=== PATIENT | female | born 1955 | race Caucasian/White ===

== ENCOUNTER 2016-12-27 13:11 | Inpatient (IN) | payer OTHER, SELFPAY ==
--- NOTE | 2016-12-27 13:26 | Emergency Department Record ---
History of Present Illness - General Chief complaint: Dental Stated complaint: ABSCESS TOOTH Time Seen by Provider: 12/27/16 13:25 Source: Patient Mode of Arrival: Ambulatory Limitations: No limitations - History of Present Illness Initial comments: The patient is here due to a dental problem for almost a week. She has been taking Amoxicillin for 4 days but it is not helping. She has had swelling and pain to the L upper dental area for 3 days now. There is no reported fever, chills, vomiting, PICKARD, or diarrhea. MD complaint: Tooth pain Onset/Timin -: Week(s) Quality: Aching Consistency: Constant, Getting worse Improves with: None Worsens with: None Associated Symptoms: Gum swelling, Toothache, Other - Related Data Home Medications Medication Instructions Recorded Confirmed Last Taken Amoxicillin 250 mg PO TID 12/27/16 12/27/16 12/27/16 Atorvastatin Calcium [Lipitor] 40 mg PO QHS 12/27/16 12/27/16 12/27/16 Multivit-Minerals/Folic Acid 80 mcg PO DAILY 12/27/16 12/27/16 12/27/16 [Centrum Multigummies] Paroxetine HCl [Paxil] 1 tab PO DAILY 12/27/16 12/27/16 12/27/16 Allergies Allergy/AdvReac Type Severity Reaction Status Date / Time bupropion Allergy HYPERSENSIT Verified 12/27/16 13:33 IVITY codeine Allergy HYPERSENSIT Verified 12/27/16 13:33 IVITY NSAIDS (Non-Steroidal AdvReac HYPERSENSIT Verified 12/27/16 13:33 Anti-Inflamma IVITY Travel Screening - Travel/Exposure Within Last 30 Days Have you traveled within the last 30 days?: No - Travel/Exposure Within Last Year Have you traveled outside the [place] in the last year?: No - Additonal Travel Details Have you been exposed to anyone with a communicable illness?: No - Travel Symptoms Symptom Screening: None Review of Systems Constitutional: Denies: Chills, Fever, Malaise Eyes: Denies: Eye discharge ENT: Denies: Congestion Respiratory: Denies: Cough, Dyspnea Cardiovascular: Denies: Arrhythmia, Chest pain Past Medical History - SOCIAL HISTORY Smoking Status: Current every day smoker Alcohol Use: None Drug Use: None - RESPIRATORY Hx Respiratory Disorders: No - CARDIOVASCULAR Hx Cardio Disorders: No - NEURO Hx Neuro Disorders: No - GI Hx GI Disorders: No - Hx Genitourinary Disorders: No - ENDOCRINE Hx Endocrine Disorders: No - MUSCULOSKELETAL Hx Musculoskeletal Disorders: No - PSYCH Hx Psych Problems: Yes Hx Depression: Yes - HEMATOLOGY/ONCOLOGY Hx Hematology/Oncology Disorders: No Family Medical History Any Significant Family History?: No Physical Exam - General General Appearance: Alert, Oriented x3, Cooperative, No acute distress - Head Head exam: Atraumatic, Normocephalic, Normal inspection - Eye Eye exam: Normal appearance, PERRL, EOMI - ENT ENT exam: TM's normal bilaterally. negative: Normal exam (There is swelling and tenderness to the L maxillary area.) Mouth exam: Normal external inspection Teeth exam: Dental caries, Other (There is WIDESPREAD dental decay and swelling and tenderness about the L upper 1st-2nd molar area.). negative: Normal inspection Throat exam: Normal inspection. negative: Tonsillar erythema, Tonsillomegaly, Tonsillar exudate - Neck Neck exam: Normal inspection, Full ROM. negative: Lymphadenopathy, Meningismus , Tenderness - Respiratory Respiratory exam: Normal lung sounds bilaterally. negative: Respiratory distress - Cardiovascular Cardiovascular Exam: Regular rate, Normal rhythm, Normal heart sounds Course Vital Signs 12/27/16 13:13 Temperature 98.3 F Pulse Rate 100 H Respiratory 20 Rate Blood Pressure 113/77 Pulse Ox 97 - Reevaluation(s) Reevaluation #1: The patient is doing well. She denies any new issue and states the pain is improved. I did discuss the case with Karlie (DEMETRI) and she does accept the admission to the hospital for IV Abx's. 12/27/16 14:23 Medical Decision Making - Data Complexity MDM Data: Labs Ordered and/or Reviewed - Lab Data Result diagrams: 12/27/16 13:40 12/27/16 13:40 Disposition Disposition: Admit Clinical Impression: Cellulitis of face Disposition: Still a Patient at [facility] Decision to Admit: Admit from ER Decision to Admit Date: 12/27/16 Decision to Admit Time: 14:24 Accepting Physician: Krupa Time Discussed w/Accepting Physician: 14:25 Condition: (2) Stable Forms: Patient Portal Access Time of Disposition: 14:25
[2016-12-27] MEDS ORDERED: CLINDAMYCIN 600MG/50ML PREMIX 600 MG in DEXTROSE 1 BAG IV ONE (13:33)
[2016-12-27] MEDS ORDERED: HYDROCODONE/APAP 5/325MG TABLET PO ONE (13:33)
[2016-12-27 13:49] LABS: BASO % 0.2 % (0-6); EOS % 0.2 % (0-6); GRAN % 76.1 % (47-80); HEMATOCRIT 45.6 % (35.0-47.0); HEMOGLOBIN 15.3 gm/dl (11.6-16.0); LYMPH % 14.5 % (16-45); MEAN CELL VOLUME 84.6 fl (81-97); MEAN CORPUSCULAR HEMOGLOBIN 28.4 pg (27-33); MEAN CORPUSCULAR HGB CONC 33.6 g/dl (32-36); MEAN PLATELET VOLUME 9.7 fl (7.4-10.4); PLATELET COUNT 409 K/uL (130-400); RED BLOOD COUNT 5.39 M/uL (3.80-5.40); RED CELL DISTRIBUTION WIDTH 13.1 % (11.5-14.5); WHITE BLOOD COUNT W/O DIFF 16.5 K/uL (4.2-12.2)
[2016-12-27 14:02] LABS: ALB/GLOB RATIO 1.2 (1.1-1.8); ALBUMIN 4.5 gm/dL (3.5-5.0); ANION GAP 14.9 (7-16); BILIRUBIN,TOTAL 1.48 mg/dL (0.2-1.3); C-REACTIVE PROTEIN 6.5 mg/dL (0.0-0.9); CARBON DIOXIDE 27.1 mmol/L (22-30); TOTAL PROTEIN 8.4 gm/dL (6.3-8.2)
[2016-12-27] MEDS ORDERED: 0.9 % SODIUM CHLORIDE 1000ML 1,000 ML IV PRN (14:50)
[2016-12-27] MEDS ORDERED: 0.9 % SODIUM CHLORIDE 10ML SYR IVP PRN (15:28)
[2016-12-27] MEDS: HYDROCODONE/APAP 5/325MG TABLET PO PRN (18:22)
[2016-12-27] MEDS: CLINDAMYCIN 600MG/50ML PREMIX 600 MG in DEXTROSE 1 BAG IV SCH (21:23)
[2016-12-27] MEDS: MORPHINE SULFATE 5 MG/ML PFS IVP PRN (21:30)
[2016-12-27] MEDS: ATORVASTATIN 20 MG TABLET PO SCH (21:40)
[2016-12-28] MEDS: CLINDAMYCIN 600MG/50ML PREMIX 600 MG in DEXTROSE 1 BAG IV SCH ×3 (05:28→21:52)
[2016-12-28] MEDS: MORPHINE SULFATE 5 MG/ML PFS IVP PRN ×4 (07:50→21:51)
[2016-12-28 07:53] LABS: BASO % 0.2 % (0-6); EOS % 0.6 % (0-6); GRAN % 71.9 % (47-80); HEMATOCRIT 41.3 % (35.0-47.0); HEMOGLOBIN 13.9 gm/dl (11.6-16.0); LYMPH % 16.1 % (16-45); MEAN CELL VOLUME 85.5 fl (81-97); MEAN CORPUSCULAR HEMOGLOBIN 28.8 pg (27-33); MEAN CORPUSCULAR HGB CONC 33.7 g/dl (32-36); MEAN PLATELET VOLUME 9.2 fl (7.4-10.4); MONO % 11.2 % (0-9); PLATELET COUNT 394 K/uL (130-400); RED BLOOD COUNT 4.83 M/uL (3.80-5.40); RED CELL DISTRIBUTION WIDTH 13.2 % (11.5-14.5); WHITE BLOOD COUNT W/O DIFF 13.1 K/uL (4.2-12.2)
[2016-12-28 08:07] LABS: ALB/GLOB RATIO 1.1 (1.1-1.8); ALKALINE PHOSPHATASE 134 U/L (38-126); ALT/SGPT 49 U/L (9-52); AST/SGOT 51 U/L (14-36); BILIRUBIN,TOTAL 1.37 mg/dL (0.2-1.3); BLOOD UREA NITROGEN 21 mg/dL (7-17); C-REACTIVE PROTEIN 6.7 mg/dL (0.0-0.9); CREATININE 0.7 mg/dL (0.52-1.04); EST GLOMERULAR FILTRATION RATE > 60 ml/min; GLUCOSE,RANDOM 144 mg/dL (70-110); TOTAL PROTEIN 7.7 gm/dL (6.3-8.2)
[2016-12-28] MEDS: PAROXETINE HCL 10 MG TABLET PO SCH (09:31)
--- NOTE | 2016-12-28 16:15 | History & Physical ---
History of Present Illness - Date of Service Date of Service for History & Physical: 12/28/16 - History of Present Illness Admitting Diagnosis: 1. L facial cellulitis with possible abscess. History of Present Illness: 61yo female with CC of left facial swelling and pain. she has a history of depression, poor dentition and smoking. Last cigarette was 3 weeks ago. Patient presented to the ED with left sided facial swelling and upper dental pain. She had been started on amoxicillin by her dentist 4 days prior for the dental pain without any improvement. Her pain was bad she decided to come to the ED. while in the ED, patient was noted to have facial swelling. Her WBC count was elevated at 16.5 and CRP was 6.5. Her Tbili was elevated but rest of labs were unremarkable. She was afebrile. Patient started on Clindamyacin and admitted for failed outpatient therapy for suspected dental abscess. 12/28/16- Patient states her pain is about the same as yesterday but that the swelling has improved a little. She reports that the ice pack and morphine have been helping with her pain. She has had previous dental infections but never been hospitalized. she has a new dentist that is planning on pulling all of her teeth. She denies fevers, chills, nausea, or drainage from her teeth. Travel Screening - Travel/Exposure Within Last 30 Days Have you traveled within the last 30 days?: No - Travel/Exposure Within Last Year Have you traveled outside the [place] in the last year?: No - Additonal Travel Details Have you been exposed to anyone with a communicable illness?: No - Travel Symptoms Symptom Screening: None Review of Systems Constitutional: Denies: Chills, Fever, Malaise Eyes: Denies: Eye discharge ENT: Reports: Dental pain (upper left ). Denies: Congestion Respiratory: Denies: Cough, Dyspnea Cardiovascular: Denies: Arrhythmia, Chest pain Skin: Reports: Change in color (redness and swelling of left facial cheek) Past Medical History - SOCIAL HISTORY Smoking Status: Current every day smoker Alcohol Use: None Drug Use: None - RESPIRATORY Hx Respiratory Disorders: No - CARDIOVASCULAR Hx Cardio Disorders: No - NEURO Hx Neuro Disorders: No - GI Hx GI Disorders: No - Hx Genitourinary Disorders: No - ENDOCRINE Hx Endocrine Disorders: No - MUSCULOSKELETAL Hx Musculoskeletal Disorders: No - PSYCH Hx Psych Problems: Yes Hx Depression: Yes - HEMATOLOGY/ONCOLOGY Hx Hematology/Oncology Disorders: No Family Medical History Any Significant Family History?: No H&P Meds/Allergies - Allergies Allergies: Allergies Allergy/AdvReac Type Severity Reaction Status Date / Time bupropion HCl Allergy Severe HIVES Verified 12/27/16 15:26 [From Wellbutrin] amoxicillin Allergy SWELLING Verified 12/27/16 14:38 OF THE FACE bupropion Allergy HYPERSENSIT Verified 12/27/16 13:33 IVITY codeine Allergy HYPERSENSIT Verified 12/27/16 13:33 IVITY NSAIDS (Non-Steroidal AdvReac HYPERSENSIT Verified 12/27/16 13:33 Anti-Inflamma IVITY - Home Medications Home Medications Medication Instructions Recorded Confirmed Last Taken Amoxicillin 250 mg PO TID 12/27/16 12/27/16 12/27/16 Atorvastatin Calcium [Lipitor] 40 mg PO QHS 12/27/16 12/27/16 12/27/16 Multivit-Minerals/Folic Acid 80 mcg PO DAILY 12/27/16 12/27/16 12/27/16 [Centrum Multigummies] Paroxetine HCl [Paxil] 1 tab PO DAILY 12/27/16 12/27/16 12/27/16 - Active Medications Active Medications: Current Medications Acetaminophen/Hydrocodone Bitart ([place] 5mg/325mg) 2 each PO Q6H PRN PRN Reason: Analgesia Last Admin: 12/27/16 18:22 Dose: 2 each Atorvastatin Calcium (Lipitor) 40 mg PO QHS [facility] Last Admin: 12/27/16 21:40 Dose: 40 mg Clindamycin Phosphate 600 mg/ (Glucose) 50 mls @ 50 mls/30 min IV Q8H [facility] Last Admin: 12/28/16 14:23 Dose: 50 mls/30 min Sodium Chloride () 1,000 mls @ 15 mls/hr IV .Q24H PRN PRN Reason: LARGE VOLUME IV Last Admin: 12/27/16 21:23 Dose: 15 mls/hr Morphine Sulfate (Morphine Sulfate) 2 mg IVP Q4HR PRN PRN Reason: Pain - General Stop: 01/03/17 20:12 Last Admin: 12/28/16 13:08 Dose: 2 mg Paroxetine HCl (Paxil) 40 mg PO DAILY [facility] Last Admin: 12/28/16 09:31 Dose: 40 mg Sodium Chloride () 10 ml IVP Q12H PRN PRN Reason: patent IV Physical Exam - Vital Signs Vital Signs: Vital Signs - Last 24 Hrs Temp Pulse Resp BP Pulse Ox 12/28/16 15:00 99.0 F 84 18 130/73 94 L 12/28/16 09:00 90 18 12/28/16 07:00 98.3 F 90 18 131/76 94 L 12/27/16 21:00 80 18 12/27/16 20:30 98.3 F 80 18 126/77 98 12/27/16 15:55 98.6 F 83 18 123/82 93 L - General General Appearance: Alert, Oriented x3, Cooperative, No acute distress Limitations: No limitations - Head Head exam: Atraumatic, Normocephalic, Normal inspection - Eye Eye exam: Normal appearance, PERRL, EOMI - ENT ENT exam: TM's normal bilaterally. negative: Normal exam (There is swelling, tenderness, and mild erythema to the L maxillary area.) Mouth exam: Normal external inspection Teeth exam: Dental caries, Other (There is WIDESPREAD dental decay and swelling and tenderness about the L upper 1st-2nd molar area.). negative: Normal inspection Throat exam: Normal inspection. negative: Tonsillar erythema, Tonsillomegaly, Tonsillar exudate - Neck Neck exam: Normal inspection, Full ROM. negative: Lymphadenopathy, Meningismus , Tenderness - Respiratory Respiratory exam: Normal lung sounds bilaterally. negative: Respiratory distress - Cardiovascular Cardiovascular Exam: Regular rate, Normal rhythm, Normal heart sounds - GI/Abdominal GI/Abdominal exam: Soft, Normal bowel sounds. negative: Tenderness - Neurological Neurological exam: Alert, Normal gait, Oriented X3, Reflexes normal Results - Labs Result Diagrams: 12/28/16 07:50 12/28/16 07:50 Labs Last 24 Hours: Laboratory Results - last 24 hr 12/28/16 12/28/16 07:50 07:50 WBC 13.1 H RBC 4.83 Hgb 13.9 Hct 41.3 MCV 85.5 MCH 28.8 MCHC 33.7 RDW 13.2 Plt Count 394 MPV 9.2 Gran % 71.9 Lymphocytes % 16.1 Monocytes % 11.2 H Eosinophils % 0.6 Basophils % 0.2 Sodium 137 Potassium 3.5 Chloride 97 L Carbon Dioxide 30.0 Anion Gap 10.0 BUN 21 H Creatinine 0.7 Estimated GFR > 60 Random Glucose 144 H Calcium 9.1 Total Bilirubin 1.37 H AST 51 H ALT 49 Alkaline Phosphatase 134 H C-Reactive Protein 6.7 H Total Protein 7.7 Albumin 4.0 Globulin 3.7 Albumin/Globulin Ratio 1.1 - Imaging and Cardiology Soft tissue neck CT Status: Report reviewed (facial cellulitis) VTE H&P Assessment - Risk for VTE Risk for VTE: Yes Risk Level: Moderate Risk Assessment Date: 12/28/16 Risk Assessment Time: 17:14 VTE Orders Placed or Will Be Placed: Yes Plan - Detailed Diagnosis and Plan (1) Facial cellulitis Current Visit: Yes Status: Acute Base Code: L03.211 - CELLULITIS OF FACE Comment: 12/28/16- Improved slightly. CT scan showed facial cellulitis without evidence of abscess. WBC count down from 16.5 to 13.1. CRP from 6.5 to 6.7. Patient remains afebrile and has had some clinical improvement in swelling. -will continue clindamyacin 600mg IV q8H with dental source most likely. Will consider transition to cefazolin or vanc if no significant improvement. -continue morphine 2mg IV q4H prn severe pain -continue to monitor vitals q8H -repeat labs in the morning (2) Total bilirubin, elevated Current Visit: Yes Status: Acute Base Code: R17 - UNSPECIFIED JAUNDICE Comment: 12/28/16- Tbili elevated. patient is asymptomatic without jaundice. -will get direct/indirect ratio -will need follow up with her pcp or GI (3) Full code status Current Visit: Yes Status: Acute Base Code: Z78.9 - OTHER SPECIFIED HEALTH STATUS Comment: 12/28/16- patient is full code (4) DVT prophylaxis Current Visit: Yes Status: Acute Base Code: [id number] - Comment: 12/28/16- patent is moderate risk wtih age and restricted mobility -will add lovenox 40mg sq daily
[2016-12-28] MEDS: ATORVASTATIN 20 MG TABLET PO SCH (21:51)
[2016-12-28] MEDS: ENOXAPARIN 40 MG/0.4 ML SYR SQ SCH (21:52)
[2016-12-29] MEDS: CLINDAMYCIN 600MG/50ML PREMIX 600 MG in DEXTROSE 1 BAG IV SCH ×3 (06:05→21:32)
[2016-12-29 06:39] LABS: BASO % 0.3 % (0-6); EOS % 1.7 % (0-6); GRAN % 64.5 % (47-80); HEMATOCRIT 40.2 % (35.0-47.0); HEMOGLOBIN 13.4 gm/dl (11.6-16.0); LYMPH % 19.3 % (16-45); MEAN CELL VOLUME 86.1 fl (81-97); MEAN CORPUSCULAR HEMOGLOBIN 28.7 pg (27-33); MEAN CORPUSCULAR HGB CONC 33.3 g/dl (32-36); MEAN PLATELET VOLUME 9.1 fl (7.4-10.4); MONO % 14.2 % (0-9); PLATELET COUNT 421 K/uL (130-400); RED BLOOD COUNT 4.67 M/uL (3.80-5.40); WHITE BLOOD COUNT W/O DIFF 10.9 K/uL (4.2-12.2)
[2016-12-29 06:58] LABS: ALB/GLOB RATIO 1.1 (1.1-1.8); ALKALINE PHOSPHATASE 156 U/L (38-126); ALT/SGPT 92 U/L (9-52); ANION GAP 10.6 (7-16); AST/SGOT 145 U/L (14-36); BILIRUBIN,TOTAL 1.15 mg/dL (0.2-1.3); BLOOD UREA NITROGEN 14 mg/dL (7-17); C-REACTIVE PROTEIN 5.9 mg/dL (0.0-0.9); CARBON DIOXIDE 28.4 mmol/L (22-30); CREATININE 0.7 mg/dL (0.52-1.04); EST GLOMERULAR FILTRATION RATE > 60 ml/min; GLUCOSE,RANDOM 149 mg/dL (70-110); TOTAL PROTEIN 7.6 gm/dL (6.3-8.2)
[2016-12-29] MEDS: MORPHINE SULFATE 5 MG/ML PFS IVP PRN ×2 (08:34→13:01)
[2016-12-29] MEDS: PAROXETINE HCL 10 MG TABLET PO SCH (09:54)
[2016-12-29] MEDS: ENOXAPARIN 40 MG/0.4 ML SYR SQ SCH (09:55)
[2016-12-29] MEDS ORDERED: MORPHINE SULFATE 5 MG/ML PFS IVP ONE (17:09)
--- NOTE | 2016-12-29 17:49 | Physician Progress Note ---
Subjective - Date Date of Physician Progress Note: 12/29/16 - Subjective Subjective Comment: 12/29/16- Patient states she thinks the redness of her left cheek has improved but says the pain and swelling are about the same. She denies any drainage in the nasal cavity, mouth or from the eye. She has no pain with movement of the left eye itself. She denies vision changes, fever, nausea. morphine 2mg iV controlling her pain Objective - Vital Signs Vital Signs: Vital Signs - Last 24 Hrs Temp Pulse Resp BP BP BP Pulse Ox 12/29/16 16:00 98.2 F 81 16 144/79 98 12/29/16 09:00 84 18 12/29/16 08:00 98.2 F 87 18 116/86 96 12/28/16 21:00 83 18 12/28/16 20:00 98.1 F 83 18 126/80 97 12/28/16 19:16 99.0 F 130/73 - General General Appearance: Alert, Oriented x3, Cooperative, No acute distress Limitations: No limitations - Head Head exam: Atraumatic, Normocephalic, Normal inspection - Eye Eye exam: Normal appearance, PERRL, EOMI - ENT ENT exam: TM's normal bilaterally. negative: Normal exam (There is swelling, tenderness, and mild erythema to the L maxillary area. The erythema has decreased from yesterday and there is slight increase in swelling as well. ) Mouth exam: Normal external inspection Teeth exam: Dental caries, Other (There is WIDESPREAD dental decay and swelling and tenderness about the L upper 1st-2nd molar area.). negative: Normal inspection Throat exam: Normal inspection. negative: Tonsillar erythema, Tonsillomegaly, Tonsillar exudate - Neck Neck exam: Normal inspection, Full ROM. negative: Lymphadenopathy, Meningismus , Tenderness - Respiratory Respiratory exam: Normal lung sounds bilaterally. negative: Respiratory distress - Cardiovascular Cardiovascular Exam: Regular rate, Normal rhythm, Normal heart sounds - GI/Abdominal GI/Abdominal exam: Soft, Normal bowel sounds. negative: Tenderness - Neurological Neurological exam: Alert, Normal gait, Oriented X3, Reflexes normal Assessment and Plan - Assessment and Plan (1) Facial cellulitis Current Visit: Yes Status: Acute Base Code: L03.211 - CELLULITIS OF FACE Comment: 12/29/16- Improved slightly. CT scan showed facial cellulitis without evidence of abscess. WBC count down from 16.5 at admission to 10.9. CRP from 6.5 to 5.9. Patient remains afebrile and has had some clinical improvement in swelling and erythema. no evidence of orbital involvement -will continue clindamyacin 600mg IV q8H with dental source most likely. Will consider transition to cefazolin or vanc if doesn't continue to improve -continue morphine 2mg IV q4H prn severe pain -continue to monitor vitals q8H -repeat labs in the morning (2) Total bilirubin, elevated Current Visit: Yes Status: Acute Base Code: R17 - UNSPECIFIED JAUNDICE Comment: 12/29/16- Resolved. Tbili normal today at 1.51 direct bili is 0.0. There was a rise in her LFt's today. AST 145, ALT 92 and alk phos 156. Pharmacy did feel this was likely 2/2 clindamyacin use. -will continue to monitor labs and clinical course and determine need to transition abx -will need follow up with her pcp or GI (3) Full code status Current Visit: Yes Status: Acute Base Code: Z78.9 - OTHER SPECIFIED HEALTH STATUS Comment: 12/29/16- patient is full code (4) DVT prophylaxis Current Visit: Yes Status: Acute Base Code: [id number] - Comment: 12/29/16- patent is moderate risk wtih age and restricted mobility -will add lovenox 40mg sq daily Results - Labs Result Diagrams: 12/29/16 06:20 12/29/16 06:20 Labs Last 24 Hours: Laboratory Results - last 24 hr 12/29/16 12/29/16 06:20 06:20 WBC 10.9 RBC 4.67 Hgb 13.4 Hct 40.2 MCV 86.1 MCH 28.7 MCHC 33.3 RDW 13.0 Plt Count 421 H MPV 9.1 Gran % 64.5 Lymphocytes % 19.3 Monocytes % 14.2 H Eosinophils % 1.7 Basophils % 0.3 Sodium 139 Potassium 3.4 L Chloride 100 Carbon Dioxide 28.4 Anion Gap 10.6 BUN 14 Creatinine 0.7 Estimated GFR > 60 Random Glucose 149 H Calcium 9.4 Total Bilirubin 1.15 Direct Bilirubin 0.0 AST 145 H ALT 92 H Alkaline Phosphatase 156 H C-Reactive Protein 5.9 H Total Protein 7.6 Albumin 4.0 Globulin 3.6 Albumin/Globulin Ratio 1.1 DVT/PE Assessment - Risk for VTE Risk for VTE: No Risk Level: Moderate Risk Assessment Date: 12/28/16 Risk Assessment Time: 17:14 VTE Orders Placed or Will Be Placed: Yes - Active Medicaitons Current Medications: Current Medications Acetaminophen/Hydrocodone Bitart ([place] 5mg/325mg) 2 each PO Q6H PRN PRN Reason: Analgesia Last Admin: 12/27/16 18:22 Dose: 2 each Atorvastatin Calcium (Lipitor) 40 mg PO QHS [facility] Last Admin: 12/28/16 21:51 Dose: 40 mg Enoxaparin Sodium (Lovenox) 40 mg SQ DAILY [facility] Last Admin: 12/29/16 09:55 Dose: 40 mg Clindamycin Phosphate 600 mg/ (Glucose) 50 mls @ 50 mls/30 min IV Q8H [facility] Last Admin: 12/29/16 14:14 Dose: 50 mls/30 min Sodium Chloride () 1,000 mls @ 15 mls/hr IV .Q24H PRN PRN Reason: LARGE VOLUME IV Last Admin: 12/27/16 21:23 Dose: 15 mls/hr Morphine Sulfate (Morphine Sulfate) 4 mg IVP NOW ONE Stop: 12/29/16 17:10 Last Admin: 12/29/16 17:12 Dose: 4 mg Paroxetine HCl (Paxil) 40 mg PO DAILY [facility] Last Admin: 12/29/16 09:54 Dose: 40 mg Sodium Chloride () 10 ml IVP Q12H PRN PRN Reason: patent IV AMI Plan - Labs Result Diagrams: 12/29/16 06:20 12/29/16 06:20
[2016-12-29] MEDS ORDERED: MORPHINE SULFATE 5 MG/ML PFS IVP PRN (18:49)
[2016-12-29] MEDS: ATORVASTATIN 20 MG TABLET PO SCH (21:31)
[2016-12-30] MEDS: CLINDAMYCIN 600MG/50ML PREMIX 600 MG in DEXTROSE 1 BAG IV SCH ×3 (06:00→21:39)
[2016-12-30 06:59] LABS: BASO % 0.4 % (0-6); EOS % 2.1 % (0-6); GRAN % 57.6 % (47-80); HEMATOCRIT 39.3 % (35.0-47.0); HEMOGLOBIN 13.1 gm/dl (11.6-16.0); LYMPH % 26.4 % (16-45); MEAN CELL VOLUME 87.1 fl (81-97); MEAN CORPUSCULAR HGB CONC 33.3 g/dl (32-36); MONO % 13.5 % (0-9); PLATELET COUNT 445 K/uL (130-400); RED BLOOD COUNT 4.51 M/uL (3.80-5.40); RED CELL DISTRIBUTION WIDTH 12.9 % (11.5-14.5); WHITE BLOOD COUNT W/O DIFF 8.4 K/uL (4.2-12.2)
[2016-12-30 07:19] LABS: ALB/GLOB RATIO 1.1 (1.1-1.8); ALBUMIN 3.7 gm/dL (3.5-5.0); ALKALINE PHOSPHATASE 152 U/L (38-126); ALT/SGPT 107 U/L (9-52); ANION GAP 10.3 (7-16); AST/SGOT 110 U/L (14-36); BILIRUBIN,TOTAL 0.68 mg/dL (0.2-1.3); BLOOD UREA NITROGEN 11 mg/dL (7-17); C-REACTIVE PROTEIN 3.9 mg/dL (0.0-0.9); CARBON DIOXIDE 31.7 mmol/L (22-30); CREATININE 0.6 mg/dL (0.52-1.04); EST GLOMERULAR FILTRATION RATE > 60 ml/min; GLUCOSE,RANDOM 122 mg/dL (70-110)
--- NOTE | 2016-12-30 07:46 | CT SCAN REPORT ---
EXAM: CT OF THE NECK WITH CONTRAST HISTORY: SWOLLEN LEFT CHEEK. TECHNIQUE: Sequential axial images were obtained through the soft tissues of the neck after intravenous administration of 100 ml of Omnipaque 300 contrast material. FINDINGS: There is left maxillary and mandibular soft tissue cellulitis. There is extensive dental disease and several broken teeth. No definitive periapical lucency is appreciated. There is mild maxillary sinus disease. The tongue base appears normal. The epiglottis, true and false cords, and trachea appear normal. The thyroid gland appears normal. The visualized lung apices appear normal. The submandibular and parotid glands appear normal. There is reactive lymphadenopathy in the jugulodigastric russel chain. IMPRESSION: 1. CELLULITIS OF THE LEFT MAXILLARY/MANDIBULAR REGION. THERE IS EXTENSIVE DENTAL DISEASE. NO DEFINITIVE ABSCESS IS APPRECIATED. 2. MINIMAL BILATERAL MAXILLARY SINUS DISEASE. 3. REACTIVE LYMPHADENOPATHY IN THE JUGULODIGASTRIC RUSSEL CHAIN. JOB NUMBER: [id number] MTDD
[2016-12-30] MEDS: POLYETHYLENE GLY 17 GM PACKET PO SCH (10:48)
[2016-12-30] MEDS: PAROXETINE HCL 10 MG TABLET PO SCH (10:49)
[2016-12-30] MEDS: ENOXAPARIN 40 MG/0.4 ML SYR SQ SCH (10:49)
--- NOTE | 2016-12-30 17:24 | Physician Progress Note ---
Subjective - Date Date of Physician Progress Note: 12/30/16 - Subjective Subjective Comment: 12/30/16- Patient continues to report pain in the left cheek area. She says it is about the same as yesterday but has not been needing pain medication today. The swelling and redness continue to improve. She denies nasal or eye drainage. No pressure behind the eye or pain with eye movement. No fevers, chills or nausea Objective - Vital Signs Vital Signs: Vital Signs - Last 24 Hrs Temp Pulse Resp BP Pulse Ox 12/30/16 09:00 18 12/30/16 08:00 98.9 F 91 H 18 137/89 93 L 12/29/16 21:00 83 20 12/29/16 20:30 99.0 F 83 20 121/70 97 - General General Appearance: Alert, Oriented x3, Cooperative, No acute distress Limitations: No limitations - Head Head exam: Atraumatic, Normocephalic, Normal inspection - Eye Eye exam: Normal appearance, PERRL, EOMI - ENT ENT exam: TM's normal bilaterally. negative: Normal exam (There is swelling, tenderness, and mild erythema to the L maxillary area. The erythema and swelling continue to decrease. There is some firmness to the area just adjacent to the nose on the left side but no fluctuance. ) Mouth exam: Normal external inspection Teeth exam: Dental caries, Other (There is WIDESPREAD dental decay and swelling and tenderness about the L upper 1st-2nd molar area.). negative: Normal inspection Throat exam: Normal inspection. negative: Tonsillar erythema, Tonsillomegaly, Tonsillar exudate - Neck Neck exam: Normal inspection, Full ROM. negative: Lymphadenopathy, Meningismus , Tenderness - Respiratory Respiratory exam: Normal lung sounds bilaterally. negative: Respiratory distress - Cardiovascular Cardiovascular Exam: Regular rate, Normal rhythm, Normal heart sounds - GI/Abdominal GI/Abdominal exam: Soft, Normal bowel sounds. negative: Tenderness - Neurological Neurological exam: Alert, Normal gait, Oriented X3, Reflexes normal Assessment and Plan - Assessment and Plan (1) Facial cellulitis Current Visit: Yes Status: Acute Base Code: L03.211 - CELLULITIS OF FACE Comment: 12/30/16- Improving. CT scan showed facial cellulitis without evidence of abscess. WBC count down from 16.5 at admission to 8.4 CRP from 6.5 to 3.9 Patient remains afebrile and continues to have clinical improvement in swelling and erythema. no evidence of orbital involvement -will continue clindamyacin 600mg IV q8H with dental source most likely. Will consider transition to oral abx tomorrow if continues to improve. -will try hydrocodone 5/325mg 1-2 tablets PO q4H for pain control -continue to monitor vitals q8H -repeat labs in the morning (2) Total bilirubin, elevated Current Visit: Yes Status: Acute Base Code: R17 - UNSPECIFIED JAUNDICE Comment: 12/30/16- Resolved. Tbili normal today at 0.68 direct bili is 0.0. Her LFT's are consistenting elevated. AST 110, ALT 107 and alk phos 152. No old labs to compare so difficult to say if this is acute vs chronic. Possibly 2/2 abx use. -will continue to monitor labs and clinical course and determine need to transition abx -will need follow up with her pcp or GI (3) Full code status Current Visit: Yes Status: Acute Base Code: Z78.9 - OTHER SPECIFIED HEALTH STATUS Comment: 12/30/16- patient is full code (4) DVT prophylaxis Current Visit: Yes Status: Acute Base Code: [id number] - Comment: 12/30/16- patent is moderate risk wtih age and restricted mobility -will add lovenox 40mg sq daily Results - Labs Result Diagrams: 12/30/16 06:20 12/30/16 06:20 Labs Last 24 Hours: Laboratory Results - last 24 hr 12/30/16 12/30/16 06:20 06:20 WBC 8.4 RBC 4.51 Hgb 13.1 Hct 39.3 MCV 87.1 MCH 29.0 MCHC 33.3 RDW 12.9 Plt Count 445 H MPV 9.0 Gran % 57.6 Lymphocytes % 26.4 Monocytes % 13.5 H Eosinophils % 2.1 Basophils % 0.4 Sodium 141 Potassium 3.8 Chloride 99 Carbon Dioxide 31.7 H Anion Gap 10.3 BUN 11 Creatinine 0.6 Estimated GFR > 60 Random Glucose 122 H Calcium 9.0 Total Bilirubin 0.68 AST 110 H ALT 107 H Alkaline Phosphatase 152 H C-Reactive Protein 3.9 H Total Protein 7.0 Albumin 3.7 Globulin 3.3 Albumin/Globulin Ratio 1.1 DVT/PE Assessment - Risk for VTE Risk for VTE: No Risk Level: Moderate Risk Assessment Date: 12/28/16 Risk Assessment Time: 17:14 VTE Orders Placed or Will Be Placed: Yes - Active Medicaitons Current Medications: Current Medications Acetaminophen/Hydrocodone Bitart ([place] 5mg/325mg) 2 each PO Q6H PRN PRN Reason: Analgesia Last Admin: 12/27/16 18:22 Dose: 2 each Atorvastatin Calcium (Lipitor) 40 mg PO QHS [facility] Last Admin: 12/29/16 21:31 Dose: 40 mg Enoxaparin Sodium (Lovenox) 40 mg SQ DAILY [facility] Last Admin: 12/30/16 10:49 Dose: 40 mg Clindamycin Phosphate 600 mg/ (Glucose) 50 mls @ 50 mls/30 min IV Q8H [facility] Last Admin: 12/30/16 15:18 Dose: 50 mls/30 min Sodium Chloride () 1,000 mls @ 15 mls/hr IV .Q24H PRN PRN Reason: LARGE VOLUME IV Last Admin: 12/27/16 21:23 Dose: 15 mls/hr Morphine Sulfate (Morphine Sulfate) 4 mg IVP Q4HR PRN PRN Reason: Pain - General Last Admin: 12/29/16 21:32 Dose: 4 mg Paroxetine HCl (Paxil) 40 mg PO DAILY [facility] Last Admin: 12/30/16 10:49 Dose: 40 mg Polyethylene Glycol (Miralax) 17 gm PO DAILY [facility] Last Admin: 12/30/16 10:48 Dose: 17 gm Sodium Chloride () 10 ml IVP Q12H PRN PRN Reason: patent IV AMI Plan - Labs Result Diagrams: 12/30/16 06:20 12/30/16 06:20
[2016-12-30] MEDS: HYDROCODONE/APAP 5/325MG TABLET PO PRN (17:31)
[2016-12-30] MEDS: ATORVASTATIN 20 MG TABLET PO SCH (21:39)
[2016-12-31] MEDS: HYDROCODONE/APAP 5/325MG TABLET PO PRN (00:11)
[2016-12-31] MEDS: CLINDAMYCIN 600MG/50ML PREMIX 600 MG in DEXTROSE 1 BAG IV SCH (05:32)
[2016-12-31 06:55] LABS: BASO % 0.4 % (0-6); EOS % 2.8 % (0-6); GRAN % 48.4 % (47-80); HEMOGLOBIN 12.5 gm/dl (11.6-16.0); LYMPH % 36.3 % (16-45); MEAN CELL VOLUME 87.8 fl (81-97); MEAN CORPUSCULAR HEMOGLOBIN 28.2 pg (27-33); MEAN CORPUSCULAR HGB CONC 32.1 g/dl (32-36); MEAN PLATELET VOLUME 8.7 fl (7.4-10.4); MONO % 12.1 % (0-9); PLATELET COUNT 452 K/uL (130-400); RED BLOOD COUNT 4.44 M/uL (3.80-5.40); WHITE BLOOD COUNT W/O DIFF 7.3 K/uL (4.2-12.2)
[2016-12-31 07:03] LABS: ALBUMIN 3.6 gm/dL (3.5-5.0); ALKALINE PHOSPHATASE 151 U/L (38-126); ALT/SGPT 103 U/L (9-52); ANION GAP 9.3 (7-16); AST/SGOT 88 U/L (14-36); BILIRUBIN,TOTAL 0.68 mg/dL (0.2-1.3); BLOOD UREA NITROGEN 16 mg/dL (7-17); C-REACTIVE PROTEIN 2.6 mg/dL (0.0-0.9); CARBON DIOXIDE 33.7 mmol/L (22-30); CREATININE 0.7 mg/dL (0.52-1.04); EST GLOMERULAR FILTRATION RATE > 60 ml/min; GLUCOSE,RANDOM 113 mg/dL (70-110); TOTAL PROTEIN 7.1 gm/dL (6.3-8.2)
--- NOTE | 2016-12-31 08:57 | Discharge Summary ---
Providers Discharge Summary Date: 12/31/16 Date of admission: 12/27/16 14:45 Expected Date of Discharge: 12/31/16 Attending physician: DIANA CRUZ Primary care physician: Holly Kruger Physical Exam - Vital Signs Vital Signs: Vital Signs - Last 24 Hrs Temp Pulse Resp BP Pulse Ox 12/30/16 21:00 98.6 F 77 18 124/75 95 12/30/16 16:00 98.2 F 84 16 129/82 98 12/30/16 09:00 18 - General General Appearance: Alert, Cooperative, No acute distress Limitations: No limitations - Head Head exam: Atraumatic, Normocephalic, Normal inspection - Eye Eye exam: Normal appearance, PERRL, EOMI - ENT ENT exam: TM's normal bilaterally. negative: Normal exam (There is swelling, tenderness, and mild erythema to the L maxillary area. The erythema and swelling continue to decrease. There is some firmness to the area just adjacent to the nose on the left side but no fluctuance. ) Mouth exam: Normal external inspection Teeth exam: Dental caries, Other (There is WIDESPREAD dental decay and swelling and tenderness about the L upper 1st-2nd molar area.). negative: Normal inspection Throat exam: Normal inspection. negative: Tonsillar erythema, Tonsillomegaly, Tonsillar exudate - Neck Neck exam: Normal inspection, Full ROM. negative: Lymphadenopathy, Meningismus , Tenderness - Respiratory Respiratory exam: Normal lung sounds bilaterally. negative: Respiratory distress - Cardiovascular Cardiovascular Exam: Regular rate, Normal rhythm, Normal heart sounds - GI/Abdominal GI/Abdominal exam: Soft, Normal bowel sounds. negative: Tenderness - Neurological Neurological exam: Alert, Normal gait, Oriented X3, Reflexes normal Hospitalization - Hospitalization Admission Diagnosis: 1. L facial cellulitis with possible abscess. - Problem List/Discharge Diagnosis (1) Facial cellulitis Plan: Laboratory Tests 12/27/16 12/27/16 12/28/16 13:40 13:40 07:50 WBC 16.5 H 13.1 H C-Reactive Protein 6.5 H 12/29/16 12/30/16 12/31/16 06:20 06:20 06:15 WBC 10.9 8.4 7.3 C-Reactive Protein 12/31/16 06:15 WBC C-Reactive Protein 2.6 H 12/31/16 08:55 Current Visit: Yes Status: Acute Base Code: L03.211 - CELLULITIS OF FACE Comment: 12/31/16- Improving. CT scan showed facial cellulitis without evidence of abscess. WBC and CRP count down. Patient remains afebrile and continues to have clinical improvement in swelling and erythema. no evidence of orbital involvement -will continue clindamyacin 500mg q6H for 7 more days with dental source most likely. -will try hydrocodone 5/325mg 1-2 tablets PO q4H for pain control - patient to make follow up with dentist and Dr. Kruger for next week - will also discharge with opthalmic drops for left eye due to some discharge but no pain with eye movement, no pressure, no pain - Hospitalization Course Disposition: Home, Self-Care Procedures: Imaging and X-Rays 12/27/16 17:14 SOFT TISSUE NECK W CONTRAST [CT] Stat Abnormal Labs: Abnormal Lab Results 12/28/16 12/28/16 12/29/16 Range/Units 07:50 07:50 06:20 WBC 13.1 H (4.2-12.2) K/uL Plt Count 421 H (130-400) K/uL Monocytes % 11.2 H 14.2 H (0-9) % Potassium (3.5-5.1) mmol/L Chloride 97 L (98-107) mmol/L Carbon Dioxide (22-30) mmol/L BUN 21 H (7-17) mg/dL Random Glucose 144 H (70-110) mg/dL Total Bilirubin 1.37 H (0.2-1.3) mg/dL AST 51 H (14-36) U/L ALT (9-52) U/L Alkaline Phosphatase 134 H (38-126) U/L C-Reactive Protein 6.7 H (0.0-0.9) mg/dL Albumin/Globulin Ratio (1.1-1.8) 12/29/16 12/30/16 12/30/16 Range/Units 06:20 06:20 06:20 WBC (4.2-12.2) K/uL Plt Count 445 H (130-400) K/uL Monocytes % 13.5 H (0-9) % Potassium 3.4 L (3.5-5.1) mmol/L Chloride (98-107) mmol/L Carbon Dioxide 31.7 H (22-30) mmol/L BUN (7-17) mg/dL Random Glucose 149 H 122 H (70-110) mg/dL Total Bilirubin (0.2-1.3) mg/dL AST 145 H 110 H (14-36) U/L ALT 92 H 107 H (9-52) U/L Alkaline Phosphatase 156 H 152 H (38-126) U/L C-Reactive Protein 5.9 H 3.9 H (0.0-0.9) mg/dL Albumin/Globulin Ratio (1.1-1.8) 12/31/16 12/31/16 Range/Units 06:15 06:15 WBC (4.2-12.2) K/uL Plt Count 452 H (130-400) K/uL Monocytes % 12.1 H (0-9) % Potassium (3.5-5.1) mmol/L Chloride (98-107) mmol/L Carbon Dioxide 33.7 H (22-30) mmol/L BUN (7-17) mg/dL Random Glucose 113 H (70-110) mg/dL Total Bilirubin (0.2-1.3) mg/dL AST 88 H (14-36) U/L ALT 103 H (9-52) U/L Alkaline Phosphatase 151 H (38-126) U/L C-Reactive Protein 2.6 H (0.0-0.9) mg/dL Albumin/Globulin Ratio 1.0 L (1.1-1.8) Condition at Discharge: (2) Stable Discharge Diagnosis: 1) facial cellulitis 2) poor denition Discharge Medications - Discharge Medications Prescriptions: Bacitracin/Polymyxin B Sulfate [Bacitracin-Polymyxin Eye Oint] 0.5 inch OP Q4HR #1 tube Ciprofloxacin HCl [Cipro] 500 mg PO Q6HR #30 tablet Hydrocodone/Acetaminophen [[place] 5mg/325mg] 1 tab PO Q6H PRN #20 tab PRN Reason: Pain - General Home Medications: Ambulatory Orders Atorvastatin Calcium [Lipitor] 40 mg PO QHS 12/27/16 [Last Taken 12/27/16] Multivit-Minerals/Folic Acid [Centrum Multigummies] 80 mcg PO DAILY 12/27/16 [ Last Taken 12/27/16] Paroxetine HCl [Paxil] 1 tab PO DAILY 12/27/16 [Last Taken 12/27/16] Bacitracin/Polymyxin B Sulfate [Bacitracin-Polymyxin Eye Oint] 0.5 inch OP Q4HR #1 tube 12/31/16 [Last Taken Unknown] Ciprofloxacin HCl [Cipro] 500 mg PO Q6HR #30 tablet 12/31/16 [Last Taken Unknown ] Hydrocodone/Acetaminophen [[place] 5mg/325mg] 1 tab PO Q6H PRN #20 tab 12/31/16 [ Last Taken Unknown] Polyethylene Glycol 3350 [Miralax] 17 gm PO DAILY packet 12/31/16 [Last Taken Unknown] Discharge Plan - Discharge Instructions Activity at Discharge: Increase Activity as Tolerated Diet at Discharge: Regular Diet
[2016-12-31] MEDS: PAROXETINE HCL 10 MG TABLET PO SCH (12:12)
[2016-12-31] MEDS: ENOXAPARIN 40 MG/0.4 ML SYR SQ SCH (12:13)
[2016-12-31] MEDS: POLYETHYLENE GLY 17 GM PACKET PO SCH (12:13)
== END 2016-12-31 12:25 | disposition home or self-care (01) | DRG 603 ==
LOC: ER 13:11 → MEDSURG 14:45 → OBSVTOIN 14:45
PROVIDERS: ADMIT Family Medicine; ATTEND Family Medicine
DX: L03.211 Cellulitis of face (principal); R17 Unspecified jaundice; Z78.9 Other specified health status; K02.9 Dental caries, unspecified
CPT/HCPCS: 70491; 80053; 82248; 85025; 86140; 96365; 99223; 99233; 99239; 99285; J1650

== ENCOUNTER 2017-04-27 10:55 | Inpatient (IN) | payer SELFPAY ==
[2017-04-27] MEDS ORDERED: MORPHINE SULFATE 5 MG/ML PFS IVP ONE ×2 (11:02→14:41)
[2017-04-27] MEDS ORDERED: DEXAMETHASONE 4 MG/ML 1ML VIAL IVP ONE (11:02)
[2017-04-27] MEDS ORDERED: CLINDAMYCIN 600MG/50ML PREMIX 600 MG/50 ML BAG IVPB ONE (11:02)
--- NOTE | 2017-04-27 11:08 | Emergency Department Record ---
History of Present Illness - General Chief complaint: Mouth sores/ulcers Stated complaint: MOUTH PAIN/FACE RED Time Seen by Provider: 04/27/17 11:00 Source: Patient, Family Mode of Arrival: Ambulatory Limitations: No limitations - History of Present Illness Initial comments: 61 yo female presents with left facial pain, mouth pain and swelling for one day. She had similar symptoms in December and was admitted for IV antibiotics. No fevers. No NVD. No rash. She has known poor dentition. Her PCP is Dr Kruger. She is not on any current antibiotics. MD complaint: Tooth pain -: Days(s) (1) Location: Tooth # (10) Severity: Moderate Quality: Aching Consistency: Constant Improves with: Swallowing Worsens with: Eating Context-Epistaxis: History of similar Context- Dental: History of dental caries - Related Data Home Medications Medication Instructions Recorded Confirmed Last Taken Atorvastatin Calcium [Lipitor] 40 mg PO QHS 12/27/16 04/27/17 12/27/16 Multivit-Minerals/Folic Acid 80 mcg PO DAILY 12/27/16 04/27/17 12/27/16 [Centrum Multigummies] Paroxetine HCl [Paxil] 1 tab PO DAILY 12/27/16 04/27/17 12/27/16 Allergies Allergy/AdvReac Type Severity Reaction Status Date / Time bupropion HCl Allergy Severe HIVES Verified 12/27/16 15:26 [From Wellbutrin] amoxicillin Allergy SWELLING Verified 12/27/16 14:38 OF THE FACE bupropion Allergy HYPERSENSIT Verified 12/27/16 13:33 IVITY codeine Allergy HYPERSENSIT Verified 12/27/16 13:33 IVITY NSAIDS (Non-Steroidal AdvReac HYPERSENSIT Verified 12/27/16 13:33 Anti-Inflamma IVITY Review of Systems Constitutional: Denies: Chills, Fever, Malaise, Weakness Eyes: Denies: Eye discharge ENT: Reports: As per HPI, Dental pain. Denies: Congestion, Throat pain Respiratory: Denies: Cough, Dyspnea, Hemoptysis, Stridor, Wheezes Cardiovascular: Denies: Chest pain, Palpitations, Syncope Endocrine: Denies: Fatigue Gastrointestinal: Denies: Abdominal pain, Diarrhea, Nausea, Vomiting Genitourinary: Denies: Dysuria, Urgency Musculoskeletal: Denies: Arthralgia, Back pain, Joint swelling, Myalgia, Neck pain Skin: Denies: Bruising, Change in color, Rash Neurological: Denies: Headache, Numbness, Tremors, Vertigo, Weakness Psychiatric: Reports: Anxiety Hematological/Lymphatic: Denies: Blood Clots, Easy bleeding, Easy bruising, Swollen glands Past Medical History - SOCIAL HISTORY Smoking Status: Current every day smoker - RESPIRATORY Hx Respiratory Disorders: No - CARDIOVASCULAR Hx Cardio Disorders: No - NEURO Hx Neuro Disorders: No - GI Hx GI Disorders: No - Hx Genitourinary Disorders: No - ENDOCRINE Hx Endocrine Disorders: No - MUSCULOSKELETAL Hx Musculoskeletal Disorders: No - PSYCH Hx Psych Problems: Yes Hx Depression: Yes - HEMATOLOGY/ONCOLOGY Hx Hematology/Oncology Disorders: No Physical Exam - General General Appearance: Alert, Oriented x3, Cooperative, No acute distress Limitations: No limitations - Head Head exam: Normal inspection - Eye Eye exam: Normal appearance, PERRL. negative: Conjunctival injection - ENT ENT exam: Mucous membranes moist. negative: Normal exam, Normal orophraynx Ear exam: Normal external inspection. negative: External canal tenderness Nasal Exam: Normal inspection. negative: Discharge, Sinus tenderness Mouth exam: Other (swollen tender area on the hard pallet middle to left anterior). negative: Normal external inspection, Drooling, Muffled voice, Tongue elevation, Tongue normal Teeth exam: Normal inspection. negative: Dental caries Throat exam: Normal inspection. negative: Tonsillar erythema, Tonsillar exudate - Neck Neck exam: Normal inspection, Full ROM. negative: Tenderness - Respiratory Respiratory exam: Normal lung sounds bilaterally. negative: Respiratory distress - Cardiovascular Cardiovascular Exam: Regular rate, Normal rhythm, Normal heart sounds - GI/Abdominal GI/Abdominal exam: Soft. negative: Tenderness - Rectal Rectal exam: Deferred - exam: Deferred - Extremities Extremities exam: Normal inspection, Full ROM, Normal capillary refill. negative: Tenderness - Neurological Neurological exam: Alert, Oriented X3. negative: Altered - Psychiatric Psychiatric exam: Anxious - Skin Skin exam: Dry, Intact, Normal color, Warm Course - Reevaluation(s) Reevaluation #1: EMR reviewed from December Oral Facial Cellulitis treated with IV Clindamycin, CT reviewed from that visit 04/27/17 11:08 Reevaluation #2: The labs were reviewed WBC count is 18 with CRP of 6.6 CT ordered 04/27/17 12:13 Reevaluation #3: CT demonstrated a 1.5cm anterior oral cavity nodule may represent chronic inflection, neoplasm not ruled out. Given onset 1 days with high CRP and WBC possible infection 04/27/17 12:54 Reevaluation #4: I JAMES Irizarry He will admit for IV antibiotics Inpatient 04/27/17 13:19 Medical Decision Making - Lab Data Result diagrams: 04/27/17 11:05 04/27/17 11:05 Disposition Disposition: Admit Clinical Impression: Oral infection, Oral cellulitis Disposition: Still a Patient at [facility] Decision to Admit: Admit from ER Decision to Admit Date: 04/27/17 Decision to Admit Time: 13:20 Condition: (1) Good Forms: Patient Portal Access Time of Disposition: 13:20 Quality - Quality Measures Quality Measures: N/A - Blood Pressure Screening View Details: Yes Blood Pressure Classification: Pre-Hypertensive BP Reading Systolic Measurement: 123 Diastolic Measurement: 82 Screening for High Blood Pressure: < Normal BP, F/U Not Required > [[id number]] Normal BP Follow-up Interventions: No follow-up required
[2017-04-27 11:18] LABS: HEMATOCRIT 48.4 % (35.0-47.0); HEMOGLOBIN 16.7 gm/dl (11.6-16.0); MEAN CELL VOLUME 85.1 fl (81-97); MEAN CORPUSCULAR HEMOGLOBIN 29.3 pg (27-33); MEAN CORPUSCULAR HGB CONC 34.5 g/dl (32-36); MEAN PLATELET VOLUME 9.3 fl (7.4-10.4); PLATELET COUNT 356 K/uL (130-400); RED BLOOD COUNT 5.69 M/uL (3.80-5.40); RED CELL DISTRIBUTION WIDTH 13.2 % (11.5-14.5); WHITE BLOOD COUNT W/O DIFF 18.9 K/uL (4.2-12.2)
[2017-04-27] MEDS ORDERED: ONDANSETRON HCL IV 4 MG/2 ML VIAL IVP ONE (11:22)
[2017-04-27 11:27] LABS: PLATELET ESTIMATE NORMAL (NORMAL)
[2017-04-27 11:32] LABS: ANION GAP 14.7 (7-16); C-REACTIVE PROTEIN 6.6 mg/dL (0.0-0.9); CARBON DIOXIDE 26.3 mmol/L (22-30)
[2017-04-27] MEDS ORDERED: 0.9 % SODIUM CHLORIDE 1,000 ML BAG IV ONE (12:33)
[2017-04-27] MEDS ORDERED: CLINDAMYCIN 600MG/50ML PREMIX 600 MG/50 ML BAG IVPB SCH ×2 (14:41→19:00)
[2017-04-27] MEDS: ACETAMINOPHEN 500 MG TABLET PO PRN ×2 (14:51→20:59)
[2017-04-27] MEDS: 0.9 % SODIUM CHLORIDE 1000ML 1,000 ML IV PRN (14:52)
[2017-04-27] MEDS: HYDROCODONE/APAP 5/325MG TABLET PO PRN (18:53)
[2017-04-27] MEDS: CLINDAMYCIN 600MG/4ML VIAL 600 MG in 0.9 % SODIUM CHLORIDE 100ML 100 ML IV SCH (20:36)
[2017-04-28] MEDS: CLINDAMYCIN 600MG/4ML VIAL 600 MG in 0.9 % SODIUM CHLORIDE 100ML 100 ML IV SCH (04:11)
[2017-04-28] MEDS: 0.9 % SODIUM CHLORIDE 1000ML 1,000 ML IV PRN ×2 (04:14→16:59)
[2017-04-28 06:15] LABS: BASO % 0.3 % (0-6); EOS % 0.4 % (0-6); GRAN % 69.7 % (47-80); HEMATOCRIT 39.1 % (35.0-47.0); HEMOGLOBIN 13.2 gm/dl (11.6-16.0); LYMPH % 21.6 % (16-45); MEAN CELL VOLUME 87.5 fl (81-97); MEAN CORPUSCULAR HEMOGLOBIN 29.5 pg (27-33); MEAN CORPUSCULAR HGB CONC 33.8 g/dl (32-36); MEAN PLATELET VOLUME 8.9 fl (7.4-10.4); PLATELET COUNT 297 K/uL (130-400); RED BLOOD COUNT 4.47 M/uL (3.80-5.40); RED CELL DISTRIBUTION WIDTH 12.8 % (11.5-14.5); WHITE BLOOD COUNT W/O DIFF 11.5 K/uL (4.2-12.2)
--- NOTE | 2017-04-28 07:19 | CT SCAN REPORT ---
EXAM: CT OF THE NECK HISTORY: MOUTH PAIN AND DIFFICULTY SWALLOWING. TECHNIQUE: CT of the neck was performed following IV administration of 100 ml of Omnipaque 300 contrast. Axial images were obtained with coronal and sagittal reconstructions. Comparison: Prior CT neck 12/27/16. FINDINGS: Limited evaluation of the brain parenchyma is unremarkable. The globes are intact bilaterally. The paranasal sinuses and mastoid air cells are unremarkable. There is very poor dentition, with multiple absent teeth and dental caries. Correlate with dental exam. Mucosal thickening and polyp formation of the left maxillary sinus. There is a lobulated area of mixed density associated with the anterior oropharynx, extending to the left of midline and minimally abutting the underlying tongue. This measures approximately 1.6 x 1.2 x 1.4 cm and also abuts the adjacent osseous maxilla and hard palate. Correlate with physical exam. Neoplastic etiology not excluded. The parotid and submandibular glands are unremarkable. Multiple nonenlarged to mildly enlarged lymph nodes in the jugulodigastric chains bilaterally as well as in the bilateral submandibular chains. Nodular appearance to the thyroid gland. Correlate with thyroid function. Limited evaluation of the lung apices is unremarkable. IMPRESSION: 1. SOFT TISSUE NODULAR FOCUS OF THE ANTERIOR OROPHARYNX EXTENDING TO THE LEFT OF MIDLINE AND ABUTTING THE ADJACENT MAXILLA. CORRELATE WITH PHYSICAL EXAM. NEOPLASTIC ETIOLOGY IS NOT EXCLUDED. 2. POOR DENTITION. 3. NONSPECIFIC NONENLARGED AND ENLARGED CERVICAL CHAIN LYMPH NODES. JOB NUMBER: [id number] MTDD
[2017-04-28] MEDS: HYDROCODONE/APAP 5/325MG TABLET PO PRN (10:11)
[2017-04-28] MEDS: PAROXETINE HCL 10 MG TABLET PO SCH (10:12)
[2017-04-28] MEDS: ENOXAPARIN 40 MG/0.4 ML SYR SQ SCH (10:12)
[2017-04-28] MEDS ORDERED: AL HYDROX/MAG HYDROX 30ML UD PO ONE (12:57)
[2017-04-28] MEDS: CLINDAMYCIN 600MG/50ML PREMIX 600 MG/50 ML BAG IVPB SCH ×2 (13:40→20:23)
--- NOTE | 2017-04-28 16:10 | History and Physical Report ---
DATE OF ADMISSION: 04/27/2017 CHIEF COMPLAINT: Cellulitis and abscess of the roof of the mouth. HISTORY OF CHIEF COMPLAINT: Started about 1 day ago. She had a similar thing about 3-4 months ago and needed IV antibiotics. Has not seen a dentist since she was here in the hospital because the dentist wants to pull out the upper teeth, and she does not have the money for that. There is swelling on the roof of the mouth, but no airway compromise. Breathing fine at this time. PAST MEDICAL HISTORY: Poor dental care. Teeth are decayed and most of them are out. She has had some history of depression. PAST SURGICAL HISTORY: None. MEDICATIONS ON ADMISSION: Paxil 1 daily, multivitamins 1 daily, Lipitor once a day at 40 mg. ALLERGIES: Amoxicillin, bupropion, codeine, and nonsteroidal antiinflammatories. FAMILY PSYCHOSOCIAL HISTORY: Currently, she smokes about less than a pack a day. No alcohol or drug use. No family history. REVIEW OF SYSTEMS: HEENT: See Chief Complaint. Cardiovascular: No chest pain, palpitations, or arrhythmias. Respiratory: No cough, cold or congestion. Gastrointestinal: No nausea, vomiting, diarrhea, black stools, or bloody stools. Genitourinary: No dysuria, hematuria, frequency, or burning on urination. Musculoskeletal: No joint or bony abnormalities. Neurologic: No CVA, paralysis, or paresthesias. Endocrine: No diabetes or thyroid disease. Integument: No rash, ulcers, changes in moles, or yellow skin. PHYSICAL EXAMINATION: VITAL SIGNS: Height 5'5". Weight 136 pounds. Temperature 97.7. Pulse 84. Blood pressure 137/92. Respiratory rate 16. Pulse ox 97% on room air. HEENT: Pupils equal, round, and reactive to light and accommodation. Extraocular muscles intact. Throat is clear. Nose is clear. Tympanic membranes niño. There is swelling on the roof of the mouth. It is very painful to palpate. NECK: Supple. No jugular venous distention. No hepatojugular reflux. No carotid bruits. Thyroid is smooth. CARDIOVASCULAR: Regular rate and rhythm without murmurs, clicks, rubs, or gallops. RESPIRATORY: Clear to auscultation and percussion. ABDOMEN: Soft, nontender, no hepatosplenomegaly. No masses or tenderness. Bowel sounds active. No bruits. EXTREMITIES: No pitting edema. No cyanosis or clubbing. Full range of motion. Peripheral pulses good. BREASTS: Deferred GYNECOLOGIC: Deferred. RECTAL: Deferred. NEUROLOGIC: Cranial nerves II-XII intact. No gross deficits. Sensation normal. Strength normal. Deep tendon reflexes equal bilaterally. Babinski is negative. MENTAL STATUS: Alert and oriented x3. IMPRESSION: Cellulitis/abscess of the roof of the mouth. PLAN: IV clindamycin 600 mg every 8 hours. I will talk to her about doing an I&D. This might speed up the recovery with 1% lidocaine and I&D with a needle aspiration. MTDD
[2017-04-28] MEDS: ACETAMINOPHEN 500 MG TABLET PO PRN (17:02)
[2017-04-28] MEDS ORDERED: AL HYDROX/MAG HYDROX 30ML UD PO SCH (17:30)
[2017-04-28] MEDS: AL HYDROX/MAG HYDROX 30ML UD PO SCH (20:25)
[2017-04-29] MEDS: CLINDAMYCIN 600MG/50ML PREMIX 600 MG/50 ML BAG IVPB SCH ×2 (04:17→12:09)
[2017-04-29] MEDS: 0.9 % SODIUM CHLORIDE 1000ML 1,000 ML IV PRN (04:19)
[2017-04-29] MEDS ORDERED: PANTOPRAZOLE SODIUM 40 MG TABLET PO SCH (07:00)
[2017-04-29] MEDS: AL HYDROX/MAG HYDROX 30ML UD PO SCH ×2 (08:18→12:08)
[2017-04-29] MEDS: ENOXAPARIN 40 MG/0.4 ML SYR SQ SCH (09:30)
[2017-04-29] MEDS: PAROXETINE HCL 10 MG TABLET PO SCH (09:36)
[2017-04-29] MEDS ORDERED: METOPROLOL SUCC 50 MG TABLET PO ONE (12:27)
--- NOTE | 2017-04-29 12:43 | Discharge Note ---
VTE H&P Assessment - Risk for VTE Risk for VTE: Yes Risk Level: Moderate Risk Assessment Date: 04/27/17 Risk Assessment Time: 19:45 VTE Orders Placed or Will Be Placed: Yes Discharge Medications - Discharge Medications Prescriptions: Clindamycin HCl 300 mg PO TID #21 capsule Hydrocodone/Acetaminophen [[place] 5mg/325mg] 1 tab PO Q6H PRN #12 tab PRN Reason: Pain - General Metoprolol Succinate 25 mg PO DAILY #30 tab.er.24h Home Medications: Ambulatory Orders Atorvastatin Calcium [Lipitor] 40 mg PO QHS 12/27/16 [Last Taken 12/27/16] Multivit-Minerals/Folic Acid [Centrum Multigummies] 80 mcg PO DAILY 12/27/16 [ Last Taken 12/27/16] Paroxetine HCl [Paxil] 40 mg PO DAILY 12/27/16 [Last Taken 12/27/16] Clindamycin HCl 300 mg PO TID #21 capsule 04/29/17 [Last Taken Unknown] Hydrocodone/Acetaminophen [[place] 5mg/325mg] 1 tab PO Q6H PRN #12 tab 04/29/17 [ Last Taken Unknown] Metoprolol Succinate 25 mg PO DAILY #30 tab.er.24h 04/29/17 [Last Taken Unknown] Discharge Note - Date Date of Discharge Note: 04/29/17 Condition: (1) Good Additional Instructions: follow up with dentist in [address] Bashir in [place] or Dr. Eason in [place] warm water rinses ten times a day follow up with Dr. Kruger in one week for BP and to make sure dental infectrion is getting better. clindamycin 300 mg three times a day for 7 days norco PRN pain metoprolol succinate 25 mg daily and when the infection is resolved she may not need BP meds Forms: Patient Portal Access Activity at Discharge: Increase Activity as Tolerated Diet at Discharge: Other (soft diet)
--- NOTE | 2017-04-30 08:51 | Discharge Summary ---
DATE OF DISCHARGE: 04/29/2017 DISCHARGE DIAGNOSES: 1. Dental cellulitis and abscess. 2. Periodontal disease. 3. Loose tooth. 4. Hypertension possibly reactive to a dental infection. ATTENDING PHYSICIAN: Stan Irizarry DO REASON FOR HOSPITALIZATION: Cellulitis and abscess of the roof of the mouth. It started about 1 day prior to coming in. She had a similar thing happen 3-4 months ago and needed IV antibiotics. She was in the hospital for 3-4 days. She has not been able to get in to see a dentist. Her previous dentist wanted to remove her upper teeth but she has not had the money for that. She has swelling in the roof the mouth but no airway compromise. She was admitted to the hospital for IV clindamycin, and the area was fluctuant, so I was able to do a needle aspiration initially and got about 5-6 mL of pus out of the area. Then I did an I&D because it seemed like it refilled back up the next day. With an 11 blade, I made a small incision. Not much pus came out at that time. SIGNIFICANT FINDINGS: CT of the neck showing soft tissue nodular focus in the anterior oropharynx extending to the left of midline and abutting the adjacent maxilla. Correlate with physical exam. The radiologist says neoplasm etiology is not excluded; however, it looks more like a dental abscess on my examination, and the abscess is behind the left central incisor. That tooth is very loose. LABORATORY: Initially the white count was 18,000, dropped down to 11.5, hemoglobin is 13.2. Electrolytes with potassium 4.0, BUN 30, creatinine 1, C-reactive protein was 6.6 and went down to 3.8. THERAPY: The patient was given IV clindamycin 600 mg q.8 h. Switched over to oral clindamycin 300 mg t.i.d. [place] 5 mg p.r.n. every 6 hours and metoprolol succinate 25 mg daily for her hypertension. She has had 2 or 3 high blood pressure readings in the hospital here but it might be related to the infection; 177/89 and 157/103. HOSPITAL COURSE: Improving. However, I am concerned about this and needs to have actual dentist or an oral surgeon see the patient to make sure that this does not come back. It is the second time in the same area and to make sure it totally resolves and that there is no sign of abnormalities like cancer in the area. CONDITION ON DISCHARGE: Much improved. DISCHARGE INSTRUCTIONS: Follow up with Dr. Kruger in 1 week, per primary doctor. Follow up with a dentist, possibly Dr. Bashir or Dr. Santiago, for further evaluation of this dental infection. The patient states that they have been trying to get ahold of a dentist but having a difficult time. Warm water rinses 10 times a day and spit it out. DISCHARGE MEDICATION: 1. Clindamycin 300 mg t.i.d. for 7 days. 2. [place] 5 mg q.6 h. p.r.n. 3. Metoprolol succinate 25 mg daily. 4. Warm water rinses. MTDD
== END 2017-04-29 13:50 | disposition home or self-care (01) | DRG 159 ==
LOC: ER 10:55 → MEDSURG 14:19
PROVIDERS: ADMIT Emergency Medicine; ATTEND Emergency Medicine
DX: K12.2 Cellulitis and abscess of mouth (principal); K05.219 Aggressive periodontitis, localized, unspecified severity; I10 Essential (primary) hypertension
CPT/HCPCS: 70491; 80048; 85025; 85027; 86140; 87070; 94760; 96365; 96366; 96375; 99223; 99233; 99239; 99285; J1650; J2405; J7030

== ENCOUNTER 2018-05-29 09:21 | Day surgery (SDC) | payer BC ==
--- NOTE | 2018-06-01 12:50 | Operative Note ---
DATE OF SURGERY: 05/29/2018 SURGEON: Florian Austin MD OPERATION: COLONOSCOPY. INDICATIONS: This is a 62-year-old female with history of colon polyps who presented for surveillance colonoscopy. POSTOPERATIVE DIAGNOSES: 1. A 3 mm sessile rectal polyp that was removed by cold biopsy forceps. 2. Otherwise normal colon. ANESTHESIA: Sedation is per Anesthesia. Pulse oximetry was monitored throughout the procedure to maintain O2 saturation of 90% or greater. Supplemental oxygen was administered via nasal cannula. Cardiac and vital signs were monitored throughout the duration of the procedure, and they were stable. The procedure of colonoscopy and risks and alternatives of the procedure, including the risk of bleeding and perforation, among others, were explained to the patient who voiced understanding and agreed to have the procedure done. Physical examination was performed, and the patient was found stable for sedation. PROCEDURE: The patient was placed in the left lateral position. Sedation was initiated. A digital rectal exam was performed and showed some mild external hemorrhoids with no palpable rectal masses. An Olympus PCF-180AL colonoscope was then inserted into the rectum under direct visualization. It was advanced to the cecum without difficulty. The ileocecal valve and appendiceal orifice were identified and photographed. The colonic mucosa was carefully examined upon introduction of the colonoscope. There were no lesions noted. The ileocecal valve was intubated and the terminal ileal mucosa was inspected for about 10 cm and it appeared normal. The colonoscope was then withdrawn while carefully examining the colonic mucosal surfaces. No lesions were noted. In the rectum, retroflexion was performed and grade 1 internal hemorrhoids were noted. A 3 mm sessile polyp was noted and was removed by cold biopsy forceps. The colonoscope was then withdrawn and the procedure was terminated. The patient tolerated the procedure well without any immediate complications. The patient remained with stable vital signs and was transferred to the recovery room. RECOMMENDATIONS: 1. We will follow up on the histology of the polyp. 2. The patient is to have a repeat colonoscopy for surveillance in 3 or 5 years depending on the histology of the polyp. Thank you for allowing me to participate in the care of your patient. CC: KERMIT Pollard
== END 2018-05-29 11:28 | disposition home or self-care (01) ==
LOC: HOP 09:21
PROVIDERS: ATTEND Internal Medicine Gastroenterology
DX: Z12.11 Encounter for screening for malignant neoplasm of colon (principal); Z86.010 Personal history of colon polyps; K62.1 Rectal polyp; K21.9 Gastro-esophageal reflux disease without esophagitis

== ENCOUNTER 2018-08-28 20:47 | Emergency (ER) | payer BC ==
[2018-08-28] MEDS ORDERED: 0.9 % SODIUM CHLORIDE 1000ML 1,000 ML IV PRN (21:13)
--- NOTE | 2018-08-28 21:17 | Emergency Department Record ---
History of Present Illness - General Chief Complaint: Fall Injury Stated Complaint: FALL INJURY Time Seen by Provider: 08/28/18 21:13 Source: Patient, Family Mode of Arrival: EMS Limitations: No limitations - History of Present Illness Initial Comments: Pt states she was on her computer in the bedroom and stood to walk to the living room and passed out in the bower. home, did not witness but states she was "awake with fluttering eyes" a few seconds after she fell. Pt vomited once. No PICKARD or visual change, no CP or SHELBY. Archibald "flashing lights in the sides" of her eyes prior to event. No hx of similar. No DM. Now feels fine. Pt states she started new BP med 2 days ago (HCTZ). Onset/Timin -: Minutes(s) Fall From: Standing When Fall Occurred: 1 hour [employer] Fall Witnessed: No Place Fall Occurred: Home Loss of Consciousness: None Prolonged Down Time?: No Symptoms Prior to Fall: None Location: Head Context: New medication Associated Symptoms: Denies - Fuentes Coma Scale Eye Response: (4) Open spontaneously Motor Response: (6) Obeys commands Verbal Response: (5) Oriented [place] Total: 15 - Related Data Previous Rx's Medication Instructions Recorded Potassium Bicarbonate/Cit AC 25 meq PO DAILY 10 Days #10 tabef 08/28/18 [K-Lyte] Allergies Allergy/AdvReac Type Severity Reaction Status Date / Time bupropion HCl Allergy Severe HIVES Unverified 08/24/18 11:37 [From Wellbutrin] amoxicillin Allergy SWELLING Unverified 08/24/18 11:37 OF THE FACE bupropion Allergy HYPERSENSIT Unverified 08/24/18 11:37 IVITY codeine Allergy HYPERSENSIT Unverified 08/24/18 11:37 IVITY NSAIDS (Non-Steroidal AdvReac HYPERSENSIT Unverified 08/24/18 11:37 Anti-Inflamma IVITY Travel Screening - Travel/Exposure Within Last 30 Days Have you traveled within the last 30 days?: No - Travel Symptoms Symptom Screening: None Review of Systems Constitutional: Denies: Chills, Fever, Weakness Eyes: Denies: Eye discharge, Eye pain ENT: Denies: Congestion Respiratory: Denies: Cough, Dyspnea Cardiovascular: Denies: Arrhythmia, Chest pain Endocrine: Reports: Polyuria. Denies: Fatigue, Polydipsia Gastrointestinal: Reports: Abdominal pain. Denies: Diarrhea, Nausea, Vomiting Genitourinary: Denies: Abnormal menses Musculoskeletal: Denies: Back pain Skin: Denies: Bruising Neurological: Denies: Abnormal gait, Headache, Numbness, Seizure, Weakness Psychiatric: Denies: Anxiety, Suicidal thoughts Hematological/Lymphatic: Denies: Anemia Past Medical History - SOCIAL HISTORY Smoking Status: Current every day smoker Alcohol Use: None Drug Use: None - RESPIRATORY Hx Respiratory Disorders: No - CARDIOVASCULAR Hx Cardio Disorders: No Hx Hypertension: Yes - NEURO Hx Neuro Disorders: No - GI Hx GI Disorders: No - Hx Genitourinary Disorders: No - ENDOCRINE Hx Endocrine Disorders: No Hx Diabetes: No Hx Thyroid Disease: No - MUSCULOSKELETAL Hx Musculoskeletal Disorders: No - PSYCH Hx Psych Problems: Yes Hx Anxiety: Yes Hx Depression: Yes - HEMATOLOGY/ONCOLOGY Hx Hematology/Oncology Disorders: No Family Medical History Any Significant Family History?: Yes Hx Cancer: Father Hx Diabetes: Father Hx Stroke: Father Physical Exam - General General Appearance: Alert, Oriented x3, Cooperative, No acute distress - Head Head exam: Atraumatic - Eye Eye exam: Normal appearance, PERRL, EOMI. negative: Nystagmus - ENT ENT exam: Normal exam, Mucous membranes moist, Normal external ear exam, Normal orophraynx, TM's normal bilaterally - Neck Neck exam: Normal inspection, Full ROM. negative: Tenderness - Respiratory Respiratory exam: Normal lung sounds bilaterally. negative: Respiratory distress - Cardiovascular Cardiovascular Exam: Regular rate, Normal rhythm, Normal heart sounds. negative : Tachycardia Peripheral Pulses: 2+: Radial (R), Radial (L), Dorsalis Pedis (R), Dorsalis Pedis (L) - GI/Abdominal GI/Abdominal exam: Soft, Normal bowel sounds. negative: Tenderness - Extremities Extremities exam: Normal inspection, Full ROM, Normal capillary refill. negative: Tenderness - Back Back exam: Reports: Normal inspection. Denies: Vertebral tenderness - Neurological Neurological exam: Alert, CN II-XII intact, Normal gait, Oriented X3. negative : Motor sensory deficit - Psychiatric Psychiatric exam: Normal affect, Normal mood - Skin Skin exam: Normal color. negative: Rash Course Vital Signs 08/28/18 20:52 Temperature 98.3 F Pulse Rate 59 L Respiratory 12 Rate Blood Pressure 107/67 Pulse Ox 97 - Reevaluation(s) Reevaluation #1: 08/28/18 23:06 Pt with near passing out at home. Recalls event. No incontinence. No PICKARD, visual change, weakness. On new HCTZ 25 mg for a few days with increased urination. K+ 3.0. Given po supplement in ED. Now feeling fine. CT. XR, EKG, and otehr labs OK. Wants to go home. No driving. Recheck Doc on Friday. Discussed breaking HCTZ in half. Scored tablet. Take 12.5mg daily with potassium supplement. Procedures - EKG Initial Date: 08/28/18 Time: 21:16 EKG: Normal EKG (HR 60 with L axsis) Medical Decision Making - Lab Data Result diagrams: 08/28/18 20:30 08/28/18 20:30 Disposition Disposition: Discharge Clinical Impression: Near syncope Disposition: Home, Self-Care Condition: (2) Stable Instructions: Hypokalemia (ED), Syncope in Older Adults (ED) Additional Instructions: HCTZ 25mg tablets BREAK IN HALF and take one half pill (12.5mg) once a day. Take potassium suppliment once a day DO NOT DRIVE until you follow up with your doctor. Return to the ED if any concerns. Prescriptions: Potassium Bicarbonate/Cit AC [K-Lyte] 25 meq PO DAILY 10 Days #10 tabef Forms: Patient Portal Access Quality - Quality Measures Quality Measures: N/A - Blood Pressure Screening Does Patient Have Any of the Following: No Blood Pressure Classification: Normal BP Reading Systolic Measurement: 107 Diastolic Measurement: 67 Screening for High Blood Pressure: < Normal BP, F/U Not Required > [G8783]
[2018-08-28 21:23] LABS: BASO % 0.8 % (0-6); EOS % 3.2 % (0-6); GRAN % 43.9 % (47-80); HEMATOCRIT 41.4 % (35.0-47.0); HEMOGLOBIN 13.6 gm/dl (11.6-16.0); LYMPH % 42.3 % (16-45); MEAN CELL VOLUME 87.5 fl (81-97); MEAN CORPUSCULAR HEMOGLOBIN 28.8 pg (27-33); MEAN CORPUSCULAR HGB CONC 32.9 g/dl (32-36); MEAN PLATELET VOLUME 9.2 fl (7.4-10.4); MONO % 9.8 % (0-9); PLATELET COUNT 384 K/uL (130-400); RED BLOOD COUNT 4.73 M/uL (3.80-5.40); RED CELL DISTRIBUTION WIDTH 13.6 % (11.5-14.5); WHITE BLOOD COUNT W/O DIFF 7.9 K/uL (4.2-12.2)
[2018-08-28] MEDS: POTASSIUM CHLORIDE 20 MEQ TABLET PO ONE (22:03)
--- NOTE | 2018-08-30 18:43 | CT SCAN REPORT ---
EXAM: CT SCAN HEAD WO CONTRAST HISTORY: UNWITNESSED SYNCOPAL EPISODE, AND FELL. TECHNIQUE: Axial CT scan of the head performed without IV contrast. COMPARISON: None. ENCOUNTER: Initial. FINDINGS: No definite acute intracranial hemorrhage identified. No focal mass effect or midline shift apparent. Mild generalized atrophy. No definite acute infarct or intracranial mass lesion seen. No depressed calvarial fracture evident. Spina bifida of C1 posteriorly incidentally noted, a developmental variant. IMPRESSION: 1. NO DEFINITE ACUTE INTRACRANIAL HEMORRHAGE OR FOCAL MASS EFFECT IDENTIFIED. 2. MILD GENERALIZED ATROPHY. 3. SPINA BIFIDA OF C1 POSTERIORLY, A DEVELOPMENTAL VARIANT. JOB NUMBER: [id number] MTDD
--- NOTE | 2018-08-30 18:48 | RADIOLOGY REPORT ---
EXAM: CHEST 2 VIEWS HISTORY: UNWITNESSED SYNCOPAL EPISODE, PATIENT FELL. TECHNIQUE: PA and lateral views. COMPARISON: Two-view chest 10/12/13. FINDINGS: Heart size is normal. Calcification and mild torsion of the aorta. Lungs again appear somewhat hyperinflated suggesting underlying COPD. No definite acute infiltrate seen and no pleural effusion or pneumothorax identified. Mild thoracic curve to the right and thoracolumbar curve to the left. IMPRESSION: 1. LUNGS APPEAR SOMEWHAT HYPERINFLATED, BEFORE. 2. NO DEFINITE ACUTE INFILTRATE SEEN. 3. CALCIFICATION AND MILD TORSION OF THE AORTA. 4. MILD SCOLIOSIS. JOB NUMBER: [id number] [facility]
== END 2018-08-28 23:16 | disposition home or self-care (01) ==
LOC: ER 20:47
DX: R55 Syncope and collapse (principal); E87.6 Hypokalemia; R11.11 Vomiting without nausea; I10 Essential (primary) hypertension; F17.210 Nicotine dependence, cigarettes, uncomplicated
CPT/HCPCS: 70450; 71046; 80048; 85025; 93005; 93010; 99284